=== PATIENT | male | born 1945 | race Caucasian/White ===

== ENCOUNTER 2017-05-21 05:34 | Emergency (ER) | payer MEDICARE, BC ==
[~2017-05-21] VITALS: Ht 193 cm; Wt 131.8 kg
[~2017-05-21 05:34] MED LIST: ALL DAY10 MG PO; AMIODARONE200 MG PO; AUGMENTIN875TAB PO; DIOVAN HC1 PO; METFORMIN500 MG PO; METOPROL TAR100 MG PO; OMEPRAZOLE20 MG PO; PERCOCET 5/325M1 TAB PO; SIMVASTATIN10 MG PO
[2017-05-21 06:21] LABS: HEMATOCRIT 30.4 % (39.0-50.0); HEMOGLOBIN 9.7 g/dl (14.0-18.0); IMMATURE GRANULOCYTES 0.6 % (0.0-1.0); MEAN CELL VOLUME 99.7 fL CALC (80.0-100.0); MEAN CORPUSCULAR HGB 31.8 pG CALC (26.0-32.0); MEAN CORPUSCULAR HGB CONC 31.9 g/L CALC (32.0-36.0); NEUT# 7.95 thou/uL (1.82-7.42); RED BLOOD COUNT 3.05 mill/uL (4.70-6.10); RED CELL DISTRI WIDTH 13.6 % (11.5-15.5)
[2017-05-21] MEDS ORDERED: XARELTO10 MG PO (06:40)
[2017-05-21 06:43] LABS: AMYLASE 45 u/l (30-110); INTERNATIONAL NORMALIZED RATIO 1.4 RATIO (0.7-1.3); LIPASE 196 u/l (23-300); PROTHROMBIN TIME 15.2 SECONDS (9.0-12.5)
[2017-05-21 06:49] LABS: ALBUMIN 3.4 g/dL (3.2-5.0); ALKALINE PHOSPHATASE 46 u/l (38-126); ANION GAP 18 (6-22 (CALC)); BILIRUBIN, TOTAL 0.6 mg/dL (0.0-1.4); BUN 55 mg/dL (8-23); BUN/CREATININE RATIO 47 (12-20 (CALC)); CARBON DIOXIDE 21 mmol/l (22-30); CHLORIDE 105 mmol/l (95-108); CREATININE 1.2 mg/dL (0.7-1.3); GFR 60 ML/MIN (>=60 (CALC)); GFR FOR AFR.AMER. > 60 ML/MIN (>=60 (CALC)); SGOT/AST 22 u/l (19-48); SGPT/ALT 42 u/l (11-66); SODIUM 138 mmol/l (137-146); TOTAL PROTEIN 5.8 g/dL (6.3-8.2)
[2017-05-21 06:53] LABS: POTASSIUM 5.6 mmol/l (3.5-5.1)
[2017-05-21 07:01] LABS: MYOGLOBIN 28 ng/mL (0 - 121)
[2017-05-21 07:54] VITALS: BP 129/61
[2017-05-21 08:02] LABS: URINE BILIRUBIN - DIPSTICK NEGATIVE (NEGATIVE); URINE BLOOD DIPSTICK NEGATIVE (NEGATIVE); URINE CLARITY CLEAR; URINE COLOR YELLOW; URINE GLUCOSE - DIPSTICK NEGATIVE (NEGATIVE); URINE KETONE 15 mg/dL (NEGATIVE); URINE LEUK ESTERASE NEGATIVE (NEGATIVE); URINE NITRITE - DIPSTICK NEGATIVE (Negative); URINE PH 5.5 (4.5-8.0); URINE PROTEIN - DIPSTICK NEGATIVE (NEG-TRACE); URINE UROBILINOGEN - DIPSTICK 0.2 E.U./dL (0.2)
[2017-05-21 08:06] VITALS: BP 118/60
[2017-05-21 08:26] VITALS: BP 132/53
[2017-05-21 08:34] VITALS: BP 130/60
[2017-05-21 08:46] VITALS: BP 128/62
[2017-05-21 09:04] VITALS: BP 128/62
== END 2017-05-21 09:05 | disposition short-term general hospital (02) ==
LOC: ED 05:34
PROVIDERS: Emergency Medicine
PROC: 30233K1 Transfusion of Nonautologous Frozen Plasma into Peripheral Vein, Percutaneous Approach (ICD-10-PCS; principal; 2017-05-21)
PROC: 30233N1 Transfusion of Nonautologous Red Blood Cells into Peripheral Vein, Percutaneous Approach (ICD-10-PCS; 2017-05-21)
PROC: 30233N1 Transfusion of Nonautologous Red Blood Cells into Peripheral Vein, Percutaneous Approach (ICD-10-PCS; 2017-05-21)
PROC: 30233K1 Transfusion of Nonautologous Frozen Plasma into Peripheral Vein, Percutaneous Approach (ICD-10-PCS; 2017-05-21)
DX: K92.1 Melena (principal); D64.9 Anemia, unspecified; I95.9 Hypotension, unspecified; I48.91 Unspecified atrial fibrillation; E11.9 Type 2 diabetes mellitus without complications; I11.9 Hypertensive heart disease without heart failure; E78.00 Pure hypercholesterolemia, unspecified; Z90.49 Acquired absence of other specified parts of digestive tract; Z85.038 Personal history of other malignant neoplasm of large intestine; Z79.01 Long term (current) use of anticoagulants
CPT/HCPCS: P9016; Q9967; S0164

== ENCOUNTER 2017-10-13 09:08 | Day surgery (SDC) | payer MEDICARE, BC ==
[~2017-10-13 09:08] MED LIST changes: +LORATADINE10 M3 PO; +PROTONIX40 M2 PO; +XARELTO10 MG PO
[2017-10-13 11:21] VITALS: BP 134/67
== END 2017-10-13 11:40 | disposition home or self-care (01) ==
LOC: ENDO 09:08 → ORM 11:00 → ENDO 11:40
PROVIDERS: ATTEND Surgery
PROC: 0DJ08ZZ Inspection of Upper Intestinal Tract, Via Natural or Artificial Opening Endoscopic (ICD-10-PCS; principal; 2017-10-13)
DX: Z09 Encounter for follow-up examination after completed treatment for conditions other than malignant neoplasm (principal); I10 Essential (primary) hypertension; E78.5 Hyperlipidemia, unspecified; E11.9 Type 2 diabetes mellitus without complications; Z87.11 Personal history of peptic ulcer disease; Z79.01 Long term (current) use of anticoagulants

== ENCOUNTER → 2018-06-18 | Outpatient (REF) | payer MEDICARE, BC ==
[2018-06-18 09:39] LABS: ALBUMIN 4.4 g/dL (3.2-5.0); ALKALINE PHOSPHATASE 70 u/l (38-126); ANION GAP 16 (6-22 (CALC)); BILIRUBIN, TOTAL 1.3 mg/dL (0.0-1.4); BUN 17 mg/dL (8-23); BUN/CREATININE RATIO 18 (12-20 (CALC)); CARBON DIOXIDE 27 mmol/l (22-30); CHLORIDE 100 mmol/l (95-108); CREATININE 0.9 mg/dL (0.7-1.3); GFR > 60 ML/MIN (>=60 (CALC)); GFR FOR AFR.AMER. > 60 ML/MIN (>=60 (CALC)); POTASSIUM 4.7 mmol/l (3.5-5.1); SGOT/AST 25 u/l (19-48); SODIUM 138 mmol/l (137-146); TOTAL PROTEIN 7.1 g/dL (6.3-8.2)
== END | disposition home or self-care (01) ==
LOC: LAB 07:25
PROVIDERS: ATTEND Internal Medicine
DX: E11.69 Type 2 diabetes mellitus with other specified complication (principal)

== ENCOUNTER 2020-02-21 08:14 | Day surgery (SDC) | payer MEDICARE, BC ==
[~2020-02-21] VITALS: Ht 190.5 cm; Wt 120.2 kg
[~2020-02-21 08:14] MED LIST changes: +METFORMIN500 M2 PO; -METFORMIN500 MG PO; +OZEMPIC2 MG/1.5 M SC; +TAMSULOSIN HCL0.4 MG PO
[2020-02-21 11:31] VITALS: BP 137/68
== END 2020-02-21 11:47 | disposition home or self-care (01) ==
LOC: ENDO 08:14
PROVIDERS: ATTEND Surgery
PROC: 0DJD8ZZ Inspection of Lower Intestinal Tract, Via Natural or Artificial Opening Endoscopic (ICD-10-PCS; principal; 2020-02-21)
DX: Z12.11 Encounter for screening for malignant neoplasm of colon (principal); K57.30 Diverticulosis of large intestine without perforation or abscess without bleeding; I10 Essential (primary) hypertension; E78.5 Hyperlipidemia, unspecified; E11.9 Type 2 diabetes mellitus without complications; Z79.84 Long term (current) use of oral hypoglycemic drugs; Z85.038 Personal history of other malignant neoplasm of large intestine; Z90.49 Acquired absence of other specified parts of digestive tract; Z20.828 Contact with and (suspected) exposure to other viral communicable diseases

== ENCOUNTER 2020-07-31 19:18 | Emergency (ER) | payer MEDICARE, BC ==
[2020-07-31 20:28] LABS: HEMOGLOBIN 15.6 g/dl (14.0-18.0); IMMATURE GRANULOCYTES 0.3 % (0.0-5.0); MEAN CELL VOLUME 92.7 fL CALC (80.0-100.0); MEAN CORPUSCULAR HGB 30.1 pG CALC (26.0-32.0); MEAN CORPUSCULAR HGB CONC 32.5 g/dL CAL (32.0-36.0); NEUT# 9.59 thou/uL (1.82-7.42); RED BLOOD COUNT 5.18 mill/uL (4.70-6.10); RED CELL DISTRI WIDTH 13.6 % (11.5-15.5)
[2020-07-31 20:42] LABS: ALBUMIN 4.8 g/dL (3.2-5.0); ALKALINE PHOSPHATASE 83 u/l (38-126); ANION GAP 15 (6-22 (CALC)); BUN 14 mg/dL (8-23); BUN/CREATININE RATIO 9 (12-20 (CALC)); CARBON DIOXIDE 27 mmol/l (22-30); CHLORIDE 95 mmol/l (95-108); CREATININE 1.7 mg/dL (0.7-1.3); GFR 40 ML/MIN (>=60 (CALC)); GFR FOR AFR.AMER. 48 ML/MIN (>=60 (CALC)); LIPASE 154 u/l (23-300); SGOT/AST 32 u/l (19-48); SODIUM 134 mmol/l (137-146); TOTAL PROTEIN 8.4 g/dL (6.3-8.2)
[2020-07-31 20:45] LABS: BILIRUBIN, TOTAL 1.3 mg/dL (0.0-1.4)
[2020-07-31 21:06] LABS: URINE BILIRUBIN - DIPSTICK NEGATIVE (NEGATIVE); URINE BLOOD DIPSTICK NEGATIVE (NEGATIVE); URINE COLOR YELLOW; URINE GLUCOSE - DIPSTICK NEGATIVE (NEGATIVE); URINE KETONE TRACE mg/dL (NEGATIVE); URINE LEUK ESTERASE NEGATIVE (NEGATIVE); URINE PH 5.5 (4.5-8.0); URINE PROTEIN - DIPSTICK 100 mg/dL (NEG-TRACE); URINE SPECIFIC GRAVITY >=1.030
[2020-07-31 21:12] LABS: URINE NITRITE - DIPSTICK NEGATIVE (Negative); URINE SQUAMOUS EPITHELIAL CELL RARE EPI/hpf (0-FEW)
[2020-07-31 21:13] LABS: URINE HYALINE CAST FEW lpf (NONE-RARE)
[2020-07-31 23:00] VITALS: BP 126/61
== END 2020-07-31 23:08 | disposition left against medical advice (07) ==
LOC: ED 19:18
PROVIDERS: Emergency Medicine
DX: R61 Generalized hyperhidrosis (principal); R42 Dizziness and giddiness; R11.0 Nausea; I10 Essential (primary) hypertension; E11.9 Type 2 diabetes mellitus without complications; I48.91 Unspecified atrial fibrillation; Z85.038 Personal history of other malignant neoplasm of large intestine; Z91.19 Patient's noncompliance with other medical treatment and regimen